=== PATIENT | male | born 1950 | race Caucasian/White ===

== ENCOUNTER 2020-06-07 09:14 | Outpatient (CLI) | payer MEDICARE, OTHER ==
[2020-06-07 15:37] LABS: ALBUMIN 4.1 g/dL (3.2-5.5); ALBUMIN/GLOBULIN RATIO 1.3 (1.0-2.2); ALKALINE PHOSPHATASE 78 IU/L (42-121); ALT ALANINE AMINOTRANSFERASE 32 IU/L (10-60); AST ASPARTATE AMINOTRANSFERASE 29 IU/L (10-42); BILIRUBIN,TOTAL 0.9 mg/dL (0.2-1.0); BUN - BLOOD UREA NITROGEN 25 mg/dL (6-20); CALCIUM 9.1 mg/dL (8.5-10.3); CARBON DIOXIDE - CO2 28 mmol/L (21-32); CHLORIDE 103 mmol/L (101-111); CHOL/HDL RATIO 3.7 (<5.0); CHOLESTEROL 285 mg/dL; CREATININE 0.9 mg/dL (0.6-1.2); GLUCOSE 90 mg/dL (70-100); HDL CHOLESTEROL 78 mg/dL; LDL CHOLESTEROL,CALCULATED 193 mg/dL; LDL/HDL RATIO 2.5 (<3.6); SODIUM 138 mmol/L (135-145); TOTAL PROTEIN 7.3 g/dL (6.7-8.2); VLDL CHOLESTEROL 14 mg/dL
[2020-06-07 15:56] LABS: CRP - C-REACTIVE PROTEIN < 1.0 mg/dL (0-1.0)
== END 2020-06-07 09:15 | disposition home or self-care (01) ==
LOC: LAB.S 09:14
PROVIDERS: ATTEND Internal Medicine
DX: Z00.00 Encounter for general adult medical examination without abnormal findings (principal); E78.5 Hyperlipidemia, unspecified; Z12.5 Encounter for screening for malignant neoplasm of prostate
CPT/HCPCS: 36415; 80053; 80061; 83036; 86140; G0103; 83721; 84153

== ENCOUNTER 2022-01-02 13:27 | Outpatient (CLI) | payer MEDICARE ==
--- NOTE | 2022-01-02 13:52 | XRAY Report ---
PROCEDURE: Knee 4 View LT INDICATIONS: LEFT KNEE PAIN TECHNIQUE: 4 views of the left knee(s) were acquired. COMPARISON: None. FINDINGS: BONES/JOINT: No acute, displaced fracture or dislocation. Small suprapatellar joint effusion. Mild t ricompartment osteophytosis. Ossific lesion adjacent to the medial femoral condyle, which may reflect prior MCL injury. SOFT TISSUES: No significant abnormality. IMPRESSION: 1.No acute osseous abnormality. Reviewed by: Nish Don MD on 01/02/2022 1:51 PM PDT Approved by: Nish Don MD on 01/02/2022 1:51 PM PDT Station ID: [id number]
== END 2022-01-02 23:59 | disposition home or self-care (01) ==
LOC: DI.S 13:27
PROVIDERS: ATTEND Physician Assistant
DX: M25.562 Pain in left knee (principal)

== ENCOUNTER 2024-04-23 19:02 | Emergency (ER) | payer MEDICARE ==
[2024-04-23 19:39] VITALS: BP 113/63; O2SAT 98
--- NOTE | 2024-04-23 21:50 | ED Physician Documentation ---
PD HPI LOWER EXT INJURY - Stated complaint Stated Complaint: RT THIGH INJ/LAC - Chief complaint Chief Complaint: Laceration - History obtained from History obtained from: Patient - History of Present Illness PD HPI LOW EXT INJURY LOCATION: Right, Thigh Type of injury: Puncture wound Pain level max: 2 Pain level now: 1 Associated symptoms: No: Weakness, Numbness, Tingling, Swelling Contributing factors: No: Anticoagulated - Additional information Additional information: 73-year-old male states that he sustained a puncture wound to the right lateral thigh. He states it was on a pooja screw/nail. His last tetanus shot was in 2022. He is concerned about potential infection. He states that he cleans it with hydrogen peroxide prior to arrival. Nothing really makes it better or worse. He states it is only mild pain. Not on blood thinners. He is unsure how far the screw penetrated but does not think it was very deep and states that the screw itself did not show any blood or tissue on the screw. Review of Systems Constitutional: denies: Fever, Chills Skin: denies: Rash PD PAST MEDICAL HISTORY - Past Medical History Past Medical History: No - Past Surgical History Past Surgical History: No - Present Medications Home Medications: Ambulatory Orders Medication Instructions Recorded Confirmed cephALEXin [Keflex] 500 mg PO Q6H #28 cap 04/23/24 - Allergies Allergies/Adverse Reactions: Allergies Allergy/AdvReac Type Severity Reaction Status Date / Time No Known Drug Allergies Allergy Verified 04/23/24 19:31 - Social History Does the pt smoke?: No Smoking Status: Never smoker Does the pt drink ETOH?: No Does the pt have substance abuse?: No - Immunizations Immunizations: TDAP >10years/unknown - POLST Patient has POLST: No PD ED PE NORMAL - Vitals Vital signs reviewed: Yes - General General: Alert and oriented X 3, No acute distress - Derm Derm: Warm and dry - Extremities Extremities: Other (There is a puncture wound to the right lateral upper thigh. No active bleeding.) - Neuro Neuro: Alert and oriented X 3 Results - Vitals Vitals: Vital Signs - 24 hr 04/23/24 19:27 Temperature 36.4 C L Heart Rate 64 Respiratory 16 Rate Blood Pressure 113/63 O2 Saturation 98 Oxygen O2 Source Room air PD Medical Decision Making - ED course Complexity details: considered differential, d/w patient ED course: Patient with a puncture wound to the right upper lateral thigh. Wound was cleansed and bandaged. Tetanus shot is up-to-date. We will place on oral antibiotics for home as this is a dirty wound. Not through and through. Warnings of infection and instructions on wound care given at bedside. Patient counseled regarding signs and symptoms for which I believe and urgent re- evaluation would be necessary. Patient with good understanding of and agreement to plan and is comfortable going home at this time This document was made in part using voice recognition software. While efforts are made to proofread this document, sound alike and grammatical errors may occur. Departure - Departure Disposition: Home, Self Care Clinical Impression: Puncture wound Condition: Good Instructions: ED Wound Puncture General Follow-Up: your,doctor in 1 week [Other] Prescriptions: cephALEXin [Keflex] 500 mg PO Q6H #28 cap Comments: Please take all antibiotics until gone. Your prescription was sent to [facility] in [place]. Keep an eye on the wound, if you develop redness, swelling or drainage from the wound, return for repeat evaluation or follow-up closely with your doctor. Your last tetanus shot was in 2022. Forms: PCP List Discharge Date/Time: 04/23/24 22:22
[2024-04-23] MEDS: cephALEXin 250 MG CAPSULE PO STA (22:15)
[2024-04-23] MEDS: BACITRACIN ZINC OINT 1 PACKET TOP STA (22:15)
[2024-04-23] MEDS: TETANUS/DIPHTHERIA/PERTUSSIS 0.5 ML SYRINGE IM ONE (22:21)
== END 2024-04-23 22:22 | disposition home or self-care (01) ==
LOC: ED 19:02
DX: S71.131A Puncture wound without foreign body, right thigh, initial encounter (principal); W45.0XXA Nail entering through skin, initial encounter
CPT/HCPCS: 99283; A9270